=== PATIENT | male | born 1970 | race Caucasian/White ===

== ENCOUNTER 2024-10-01 14:47 | Emergency (ER) | payer MEDICARE ==
[~2024-10-01] VITALS: Ht 187.9 cm; Wt 108.9 kg
[2024-10-01] MEDS ORDERED: ACETAMINOPHEN 500 MG TAB PO ONE (16:20)
[2024-10-01] MEDS ORDERED: OXYCODONE HCL (IR) 5 MG TAB PO ONE (17:50)
[2024-10-01] MEDS ORDERED: TRAMADOL HCL50 MG PO (17:52)
== END 2024-10-01 18:05 | disposition home or self-care (01) ==
LOC: ED 14:47
DX: S06.0X9A Concussion with loss of consciousness of unspecified duration, initial encounter (principal); S13.9XXA Sprain of joints and ligaments of unspecified parts of neck, initial encounter; W22.8XXA Striking against or struck by other objects, initial encounter; Y93.89 Activity, other specified; Y92.89 Other specified places as the place of occurrence of the external cause; Y99.8 Other external cause status